=== PATIENT | male | born 1975 | race Caucasian/White ===

== ENCOUNTER 2024-04-15 06:32 | Emergency (ER) ==
[~2024-04-15] VITALS: Ht 185.4 cm; Wt 68.0 kg
[2024-04-15 06:48] VITALS: PULSE 87; RESP 16; TEMP 98.5; O2SAT 100
== END 2024-04-15 07:16 | disposition short-term general hospital (02) ==
LOC: ER 06:40
DX: R68.83 Chills (without fever) (principal)